=== PATIENT | male | born 1965 | race Caucasian/White ===

== ENCOUNTER → 2021-04-29 | Outpatient (CLI) | payer BC | LOC: KOH-I 11:04 | DX: R06.02 Shortness of breath (principal); R91.8 Other nonspecific abnormal finding of lung field | CPT/HCPCS: 71046 ==

== ENCOUNTER 2021-05-16 17:32 | Emergency (ER) | payer BC | END 2021-05-16 21:30 | disposition home or self-care (01) | LOC: ER1 17:32 | DX: S61.217A Laceration without foreign body of left little finger without damage to nail, initial encounter (principal); F17.200 Nicotine dependence, unspecified, uncomplicated; Z86.16 Personal history of COVID-19; W23.0XXA Caught, crushed, jammed, or pinched between moving objects, initial encounter | CPT/HCPCS: 12002; 73130; 99283 ==